=== PATIENT | female | born 1965 | race Asian ===

== ENCOUNTER → 2020-12-04 12:30 | Outpatient (CLI) | payer OTHER, SELFPAY ==
--- NOTE | 2020-12-04 | DI.MRI.S_ITS ---
PROCEDURE: MR SHOULDER RT WO CON INDICATIONS: Pain in right shoulder TECHNIQUE: Noncontrast oblique coronal T2 fast spin echo with fat saturation, oblique sagittal T1 spin echo and T2 fast spin echo with fat saturation, axial T1 spin echo and T2 fast spin echo with fat saturation through the shoulder. COMPARISON: None. FINDINGS: Image quality: Excellent. Rotator cuff: Supraspinatus tendinopathy with small full thickness tear. Infraspinatus tendinopathy with small full thickness tear. The teres minor is intact. Mild to moderate subscapularis tendinopathy. Sagittal images demonstrate no significant muscle atrophy. Bones and bursae: Small foci (less than 5 mm) of T1 hypointense/T2 hyperintense signal in the humeral head and glenoid, which may reflect osteochondral injury. Patchy T2 hyperintense and faint T1 hypointense signal is seen in the humeral neck, which may reflect contusion. Zlhh-ph-fomxzmzf arthrosis of the acromioclavicular joint with T2 hyperintense signal within the articulation. No os acromiale. Subacromial/subdeltoid fluid is seen, which may be secondary to rotator cuff tears and/or bursitis. Capsule and soft tissues: Linear signal in the posterior labrum, which may reflect a small degenerative tear (8-13). The long head of the biceps tendon demonstrates normal location and morphology. Small to moderate glenohumeral joint effusion. . IMPRESSION: 1. Small full-thickness tears of the supraspinatus and infraspinatus tendons with tendinopathy. 2. Xlkt-ng-cjftxuqm subscapularis tendinopathy. 3. Xlua-go-mxyyakpb acromioclavicular arthrosis. 4. Subacromial/subdeltoid bursitis versus joint fluid. 5. Faint abnormal signal in the humeral neck, which may reflect contusion versus heterogeneous marrow. 6. Signal in the posterior labrum, likely reflecting degenerative change. 7. Small to moderate glenohumeral joint effusion. 1. Dictated by: George Mosley M.D. on 12/04/2020 at 16:59 Approved by: George Mosley M.D. on 12/04/2020 at 17:10
== END ==
PROVIDERS: Referring Provider Orthopaedic Surgery; Visit Provider Orthopaedic Surgery
DX: M25.511 Pain in right shoulder (principal); M75.121 Complete rotator cuff tear or rupture of right shoulder, not specified as traumatic; M19.011 Primary osteoarthritis, right shoulder; M25.411 Effusion, right shoulder
CPT/HCPCS: 73221

== ENCOUNTER → 2021-10-30 11:33 | Outpatient (CLI) | payer BC, SELFPAY ==
--- NOTE | 2021-10-30 | DI.MG.S_ITS ---
BILATERAL DIGITAL SCREENING MAMMOGRAM 3D/2D WITH CAD: 10/30/2021 CLINICAL: Routine screening. Comparison is made to exams dated: 10/03/2020 mammogram, 07/14/2019 mammogram, and 06/15/2018 mammogram - outside location. Both breasts are extremely dense, which lowers the sensitivity of mammography (category d />75% glandular tissue). Current study was also evaluated with a Computer Aided Detection (CAD) system. No significant masses, calcifications, or other findings are seen in either breast. There has been no significant interval change. IMPRESSION: NEGATIVE There is no mammographic evidence of malignancy. A 1 year screening mammogram is recommended. Based on Tyrer-Cuzick model (a risk assessment model), the patient's lifetime risk is 24.0% and her 10 year risk is 9.3%. If a patient has an elevated risk, a more comprehensive evaluation should be considered and/or a referral to a genetic counselor. The [place] [employer], [employer], and NCCN Guidelines advise the consideration of Breast MRI as an adjunct to screening mammography in patients whose Lifetime risk to develop breast cancer is 20% or higher. This exam was interpreted at Station ID: [id number]. NOTE: For mammograms, a report in lay terms will be sent to the patient. Approximately 15% of breast malignancies will not be visualized mammographically. In the management of a palpable breast mass, a negative mammogram must not discourage biopsy of a clinically suspicious lesion. Electronically Signed By: Tawnya elizabeth/iwona:10/30/2021 15:36:09 letter sent: Normal Exam ACR BI-RADS Category 1: Negative 3341F
== END ==
PROVIDERS: PCP Internal Medicine; Referring Provider Internal Medicine; Visit Provider Internal Medicine
DX: Z12.31 Encounter for screening mammogram for malignant neoplasm of breast (principal)
CPT/HCPCS: 77063; 77067

== ENCOUNTER → 2022-10-31 12:55 | Outpatient (CLI) | payer BC, SELFPAY ==
--- NOTE | 2022-10-31 | DI.MG.S_ITS ---
BILATERAL DIGITAL SCREENING MAMMOGRAM 3D/2D WITH CAD: 10/31/2022 CLINICAL: Routine screening. Family history of breast cancer. Comparison is made to exams dated: 10/30/2021 mammogram - [facility], 10/03/2020 mammogram, and 07/14/2019 mammogram - outside location. Both breasts are heterogeneously dense, which may obscure small masses (category c / 51-75% glandular tissue). Current study was also evaluated with a Computer Aided Detection (CAD) system. No significant masses, calcifications, or other findings are seen in either breast. There has been no significant interval change. IMPRESSION: NEGATIVE There is no mammographic evidence of malignancy. A 1 year screening mammogram is recommended. Based on the Tyrer Cuzick model (a risk assessment model) the patient's lifetime risk is 16.2% and her 10 year risk is 6.4%. According to the ACR, ACS, and NCCN guidelines, an annual breast MRI exam along with mammogram is recommended if the patient's lifetime risk is 20% or greater. This exam was interpreted at Station ID: [id number]. NOTE: For mammograms, a report in lay terms will be sent to the patient. Approximately 15% of breast malignancies will not be visualized mammographically. In the management of a palpable breast mass, a negative mammogram must not discourage biopsy of a clinically suspicious lesion. Electronically Signed By: Eugene fleming/iwona:11/10/2022 13:52:51 letter sent: Normal Exam ACR BI-RADS Category 1: Negative [id number]
== END ==
PROVIDERS: PCP Internal Medicine; Referring Provider Internal Medicine; Visit Provider Internal Medicine
DX: Z12.31 Encounter for screening mammogram for malignant neoplasm of breast (principal)
CPT/HCPCS: 77063; 77067

== ENCOUNTER → 2024-01-01 13:14 | Outpatient (CLI) | payer BC, SELFPAY ==
--- NOTE | 2024-01-01 13:15 | DI.MG.S_ITS ---
BILATERAL DIGITAL SCREENING MAMMOGRAM 3D/2D WITH CAD: 01/01/2024 CLINICAL: Routine screening. Family history of breast cancer. Comparison is made to exams dated: 10/31/2022 mammogram, 10/30/2021 mammogram - [facility], 10/03/2020 mammogram, 07/14/2019 mammogram, and 06/15/2018 mammogram - outside location. The breasts are heterogeneously dense, which may obscure small masses (category c / 51-75% glandular tissue). Current study was also evaluated with a Computer Aided Detection (CAD) system. No significant masses, calcifications, or other findings are seen in either breast. There has been no significant interval change. IMPRESSION: NEGATIVE There is no mammographic evidence of malignancy. A 1 year screening mammogram is recommended. Based on the Tyrer Cuzick model (a risk assessment model) the patient's lifetime risk is 15.9% and her 10 year risk is 6.5%. According to the ACR, ACS, and NCCN guidelines, an annual breast MRI exam along with mammogram is recommended if the patient's lifetime risk is 20% or greater. This exam was interpreted at Station ID: [id number]. NOTE: For mammograms, a report in lay terms will be sent to the patient. Approximately 15% of breast malignancies will not be visualized mammographically. In the management of a palpable breast mass, a negative mammogram must not discourage biopsy of a clinically suspicious lesion. Electronically Signed By: Ernie valencia/iwona:01/01/2024 19:01:09 letter sent: Normal Exam ACR BI-RADS Category 1: Negative
== END ==
PROVIDERS: PCP Internal Medicine; Referring Provider Internal Medicine; Visit Provider Internal Medicine
DX: Z12.31 Encounter for screening mammogram for malignant neoplasm of breast (principal); Z80.3 Family history of malignant neoplasm of breast; R92.333 Mammographic heterogeneous density, bilateral breasts
CPT/HCPCS: 77063; 77067

== ENCOUNTER → 2024-02-20 10:43 | Outpatient (CLI) | payer BC, SELFPAY ==
--- NOTE | 2024-02-20 10:45 | DI.RAD.S_ITS ---
PROCEDURE: XR DEXA AXIAL SKELETON INDICATIONS: ROUTINE COMPARISON: None. FINDINGS: Lumbar Spine: Bone mineral density 0.82 g/cm2, T score -1.5. Left Hip: Bone mineral density 0.807 g/cm2, T score -1.1. Left Femoral Neck: Bone mineral density 0.673 g/cm2, T score -1.6. Right Hip: Bone mineral density 0.792 g/cm2, T score -1.2. Right Femoral Neck: Bone mineral density 0.676 g/cm2, T score -1.6. Fracture Risk Calculation (when applicable): 10-year fracture risk of a major osteoporotic fracture 8 percent and of a hip fracture 0.7 percent. (T score greater or equal to -1.0 to: NORMAL) (T score from -1.1 to -2.4: OSTEOPENIA) (T score less than or equal to -2.5: OSTEOPOROSIS) IMPRESSION: Exyt-ez-manzfokx osteopenia in the lumbar spine as well as the femoral necks bilaterally. Follow-up guidelines as follows: Osteoporosis: Consider a repeat DEXA and Vertebral Fracture Assessment (VFA) exam in 2 years or sooner if medically necessary, to reassess this patient's status. Osteopenia: Consider a repeat DEXA in 2-3 years to reassess this patient's status, or if there is a new clinical indication. Normal: Consider a repeat DEXA in 5 years or sooner, or if there is a new clinical indication. All treatment decisions require clinical judgment and consideration of individual patient factors, including patient preferences, comorbidities, previous drug use, risk factors not captured in the FRAX model (e.g., frailty, falls, vitamin D deficiency, increased bone turnover, interval significant decline in bone density ) and possible under- or over-estimation of fracture risk by FRAX. In addition, the NOF Guide recommends that FDA-approved medical therapies be considered in postmenopausal women and men age >= 50 years with a: * Hip or vertebral (clinical or morphometric) fracture * T-score of <=-2.5 at the spine or hip * Ten-year fracture probability by FRAX of >= 3% for hip fracture or >=20% for major osteoporotic fracture. People with diagnosed cases of osteoporosis or at high risk for fracture should have regular bone mineral density tests. For patients eligible for Medicare, routine testing is allowed once every 2 years. The testing frequency can be increased to one year for patients who have rapidly progressing disease, those who are receiving or discontinuing medical therapy to restore bone mass, or have additional risk factors. Dictated by: Camelia Singh M.D. on 02/20/2024 at 16:49 Approved by: Camelia Singh M.D. on 02/20/2024 at 16:57
== END ==
LOC: RAD 10:44
PROVIDERS: PCP Registered Nurse; Referring Provider Registered Nurse; Visit Provider Registered Nurse
DX: M85.89 Other specified disorders of bone density and structure, multiple sites (principal); Z78.0 Asymptomatic menopausal state
CPT/HCPCS: 77080

== ENCOUNTER → 2025-01-15 14:45 | Outpatient (CLI) | payer BC, SELFPAY ==
--- NOTE | 2025-01-15 14:47 | DI.MG.S_ITS ---
MM screening mammo BI: 01/15/2025. BI-RADS: 1 CLINICAL: 59-year old female for bilateral screening mammogram. Tyrer-Cuzick lifetime risk of 19.6%. No personal or first-degree family history of breast cancer. Current reported family history of breast cancer: paternal aunt. PRIOR EXAMS 01/01/2024, 10/31/2022, 10/30/2021. MAMMOGRAPHY TECHNIQUE: 2D and 3D (tomosynthesis) digital mammographic views obtained, with additional images as needed for full coverage. Current study was also evaluated with a Computer Aided Detection (CAD) system. DENSITY D. The breasts are extremely dense, which lowers the sensitivity of mammography. MAMMOGRAPHY FINDINGS Bilateral: No suspicious mass, asymmetry, microcalcification, or other abnormality seen. No significant change from comparison. IMPRESSION: * No evidence of malignancy. RECOMMENDATIONS Bilateral * Annual screening mammography. OVERALL ASSESSMENT CATEGORY BI-RADS-1: Negative. The [employer] recommends annual screening mammography beginning at age 40 for women with average risk of breast cancer. ELECTRONICALLY SIGNED: Tawnya Wilson M.D. on 01/17/2025 at 12:05:05 PM PT Interpreting Station ID: [id number]
== END ==
LOC: MAMMO 14:46
DX: Z12.31 Encounter for screening mammogram for malignant neoplasm of breast (principal); R92.343 Mammographic extreme density, bilateral breasts; Z80.3 Family history of malignant neoplasm of breast
CPT/HCPCS: 77063; 77067